=== PATIENT | female | born 1950 | race Caucasian/White ===

== ENCOUNTER 2016-03-20 13:46 | Emergency (ER) | payer MEDICARE ==
[~2016-03-20] VITALS: Ht 152.4 cm; Wt 72.3 kg
[~2016-03-20 13:46] MED LIST: AMLO-39 PO; CARI350T PO; ESTR0.5T PO; LEVO100T6 PO; LORA0.5T PO; METO25TA3 PO; OMEP20TA86 PO; OXYC1TAB24 PO; PARO20TA57 PO; POTA20TA7 PO; PREG150C PO; TRIA1CAP5 PO
[2016-03-20 13:50] VITALS: BP 116/90; PULSE 112; RESP 20; O2SAT 93
[2016-03-20] MEDS ORDERED: AMLO2.5T PO (14:14)
[2016-03-20] MEDS ORDERED: HYDR-3825 PO (14:14)
[2016-03-20] MEDS ORDERED: DULO60CA61 PO (14:14)
[2016-03-20] MEDS ORDERED: CYCL5TAB PO (14:14)
[2016-03-20] MEDS ORDERED: PRD2.5T PO (14:14)
--- NOTE | 2016-03-20 15:08 | ED.REPORT ---
HPI-General Illness Date of Service Mar 20, 2016 ED Provider: Claude Salazar MD History of Present Illness: OCC Pt is a 65 year old female with a hx of HTN, presenting to the ED complaining of constipation, last BM 2 days ago. Associated symptoms include diaphoresis, chills, weakness, subjective fever, shaking, mild headache, racing heart, back pain, abd cramping (onset yesterday while trying to have a BM). Denies dysuria or nausea. She states that 1 week ago she was put on antibiotics, her Cymbalta was increased, and she had an influenza shot, and she has felt ill since. The pt disimpacted yesterday but has not had a regular bowel movement since, and has not eaten due to feeling ill. She reports drinking milk and water with her pills. Nursing Notes Stated Complaint: SWEATING,NO FLUIDS,NO BOWEL MOVEMENTS Chief Complaint: Female Abdominal Pain Nursing Notes Reviewed: Yes ([employer], meds reconciled - but do no include dilaudid mentioned in RN report - turns out patient NOT on Dilaudid, patient's duloxetine was recently increased) Allergies: Coded Allergies: cephalexin (Verified Allergy, Severe, ANGIOEDEMA, 02/04/15) ciprofloxacin (Verified Allergy, Severe, MENTAL CONFUSION, 02/04/15) lisinopril (Verified Allergy, Severe, oral swelling, 02/04/15) Potassium Clavulanate (Verified Adverse Reaction, Severe, Nausea,Vomiting, AGITATION, 02/04/15) amoxicillin trihydrate (Verified Adverse Reaction, Intermediate, Nausea, Vomiting,AGITATION, 02/04/15) Scheduled Amlodipine (Amlodipine) 2.5 Mg Tablet 2.5 MG PO DAILY Duloxetine (Duloxetine) 60 Mg Capsule.dr 60 MG PO DAILY Estradiol (Estradiol) 0.5 Mg Tablet 0.5 MG PO DAILY Levothyroxine (Levothyroxine) 100 Mcg Tablet 100 MCG PO DAILY Metoprolol Succinate ER (Toprol XL) 25 Mg Tablet 25 MG PO DAILY Omeprazole (Omeprazole) 20 Mg Tablet.dr 20 MG PO DAILY Prednisone (PredniSONE) 2.5 Mg Tab 2.5 MG PO DAILY Triamterene/HCTZ 37.5-25 mg (Triamterene/HCTZ 37.5-25 mg) 1 Each Capsule 1 CAPSULE PO DAILY Scheduled PRN Cyclobenzaprine (Cyclobenzaprine) 5 Mg Tablet 5 MG PO HS PRN PRN Spasm Hydrocodone-Acetaminophen 7.5-325 mg (Hydrocodone-Acetaminophen 7.5-325 mg) 1 Each Tablet 1 TABLET PO Q4H PRN PRN For Pain Lorazepam (Lorazepam) 0.5 Mg Tablet 0.25-0.5 MG PO HS PRN PRN For Insomnia Polyethylene Glycol 3350 (Miralax) 17 Gm Powd.pack 17 GM PO DIRECTED PRN PRN For Constipation General Time Seen by MD: 15:02 Chief Complaint Other (Constipation) Hx Obtained From: Patient Arrived By: Walk-in Onset Occurred: 1 week ago Context of Onset: Recent antibiotic use Symptom Duration: Since onset Location: : Abdomen: Back Quality: Painful Severity: Current: Mild Severity: Maximum: Moderate Recent Healthcare: No recent hospitalization, Recent doctor visit Similar Sx Previous: Yes Past Medical History Past Medical History Hypertension Rheumatoid arthritis on prednisone Fibromyalgia Hypothyroidism GERD Rotator cuff tear History of meningioma History of scoliosis History of kidney stones History of chronic pain Past Surgical History History of umbilical hernia repair Hysterectomy for endometriosis Left wrists cyst removal Bilateral L2-3, L3-4, and right L4-5 laminectomy for spinal stenosis Reports: Tubal ligation Ambulatory Status Independent Review of Systems Full Review of Systems Constitutional: Reports: Chills, Fever GI: Reports: Abdominal pain, Constipation, Denies: Nausea Female: Denies: Dysuria Musculoskeletal: Reports: Back pain Skin: Reports Diaphoresis Neurologic: Reports: Headache, Shaking, Weakness Complete sys rev & neg: except as marked. Physical Exam Vital Signs Vital Signs Date Time Temp Pulse Resp B/P Pulse Ox O2 Delivery O2 Flow Rate FiO2 03/20/16 19:06 90 18 134/69 99 Room Air 03/20/16 17:09 36.9 101 19 129/85 95 Room Air 03/20/16 13:50 36.2 112 20 116/90 93 Room Air Initial VS: Reviewed, Vital signs abnormal Head / Eyes: Atraumatic, Normocephalic, PERRL ENT: Mucous membranes moist, Conjunctiva normal, No scleral icterus Neck: Supple Respiratory: Breath sounds normal, Clear to auscultation, No respiratory distress Cardiovascular: Regular rate & rhythm, Heart sounds normal, Intact distal pulses Lymphatic: No lymphadenopathy Extremities: Vascular intact, Neuro intact, No swelling, No tenderness Skin: Warm, Dry, No cyanosis Neurologic: Alert, Oriented, Nonfocal Psychiatric: Mood/affect normal, Behavior normal, Normal thought content General/Constitutional: Awake, Alert Fatigued Abdomen: No guarding, No rebound Lower abd tenderness, right slightly greater than left Interpretation & Diagnostics Interpretation & Diagnostics: Patient was started last week on Macrodantin for UTI at the office, and is currently on Macrodantin I have attempted to identify a culture done - none was identified in the system Lab Results Interpretation Result Diagram: 03/20/16 1430 03/20/16 1518 Test 03/20/16 14:30 03/20/16 15:18 03/20/16 15:30 03/20/16 16:17 White Blood Count 16.0th/mm3 (3.8-10.1) Red Blood Count 4.51mil/mm3 (3.90-5.20) Hemoglobin 13.9g/dL (12.0-15.6) Hematocrit 40.8% (35.0-46.0) Mean Corpuscular Volume 90.5fL (81-100) Mean Corpuscular Hemoglobin 30.8pg (27.0-35.0) Mean Corpuscular Hemoglobin Concent 34.1% (32.0-37.0) Red Cell Distribution Width 13.5% (12.3-15.4) Platelet Count 249bil/L (150-400) Neutrophils (%) (Auto) 71.3% (40-74) Lymphocytes (%) (Auto) 14.5% (14-46) Monocytes (%) (Auto) 5.8% (4-12) Eosinophils (%) (Auto) 5.8% (0-5) Basophils (%) (Auto) 0.8% (0-3) Lactic Acid Level 1.7mmol/L (0.4-2.0) Sodium Level 135mEq/L (134-144) Potassium Level 3.1mEq/L (3.5-5.2) Chloride Level 97mEq/L (97-108) Carbon Dioxide Level 22mmol/L (18-29) Blood Urea Nitrogen 23mg/dL (8-27) Creatinine 0.94mg/dL (0.57-1.00) Estimat Glomerular Filtration Rate 86mL/min (>59) Glucose Level 121mg/dL (60-99) Calcium Level 8.9mg/dL (8.5-10.1) Total Bilirubin 0.9mg/dL (0.0-1.2) Aspartate Amino Transf (AST/SGOT) 73U/L (0-50) Alanine Aminotransferase (ALT/SGPT) 99U/L (0-32) Alkaline Phosphatase 125U/L (25-165) Total Protein 6.8g/dL (6.4-8.4) Albumin 3.1g/dL (3.4-5.0) Hold Purple Top Tube Received (Received) Hold Blue Top Tube Received (Received) Hold Red Top Tube Received (Received) Hold [place] Top Tube Received (Received) Hold Ru[place] Top Tube Received (Received) Urine Color Yellow (YELLOW) Urine Appearance Clear (CLEAR,HAZY) Urine pH 7.5 (5.0-8.0) Urine Specific [place] 1.010 (1.003-1.035) Urine Protein Tracemg/dL (NEG,TRACE) Urine Glucose (UA) Negativemg/dL (NEGATIVE) Urine Ketones Tracemg/dL (NEGATIVE) Urine Occult Blood Trace (NEGATIVE) Urine Nitrite Negative (NEGATIVE) Urine Bilirubin Negative (NEGATIVE) Urine Urobilinogen Normalmg/dL (NORMAL) Urine Leukocyte Esterase Negative (NEGATIVE) Urine RBC 0-2/hpf (0-2) Urine WBC 0-5/hpf (0-5) Urine Epithelial Cells Few/hpf (NONE-MOD) Urine Crystals None seen (NONE SEEN) Urine Bacteria Few/hpf (NONE-FEW) Urine Hyaline Casts None/lpf (NONE) Urine Granular Casts None seen (NONE SEEN) Urine Waxy Casts None seen (NONE SEEN) Urine Red Blood Cell Casts None seen (NONE SEEN) Urine White Blood Cell Casts None seen (NONE SEEN) Urine Mucus None seen (None Seen) Urine Trichomonas None seen (NONE SEEN) Urine Yeast None (NONE SEEN) Urinalysis Comment None Urine Culture Reflexed Not indicated Lab Results Interpretation: CBC positive leukocytosis CMP mild hypokalemia Blood cultures pending Lactic acid normal UA negative X-Ray Abdominal Interpretation IMPRESSION: Nonspecific bowel gas pattern. If patient's symptoms persist, recommend repeat imaging or CT. Dictated by: Hunter SPRING Interpreted: Oksana Quigley MD on 03/20/2016 at 15:43 Transcribed by: VIKKI on 03/20/2016 at 15:44 Approved by: Oksana Quigley MD, PhD on 03/20/2016 at 17:05 Interpretation / Wet Read by: Interpret - Radiologist CT Abd / Pelvis Interpretation IMPRESSION: 1. No acute intra-abdominal findings. Normal appendix. 2. Fat-containing ventral hernia. No bowel herniation. Dictated by: Venita Bunch M.D. on 03/20/2016 at 18:09 Study type: Abdominal CT IV contrast Interpretation / Wet Read by: Interpret - Radiologist Re-Eval/Medical Decision Med Decision/Clinical Course This is a 65-year-old female presents with a variety of complaints. She is on chronic prednisone to history returns arthritis, reports last week she felt poorly, fatigue was having maybe fevers chills and sweats-reportedly generally stopped on Saturday. She is also been having problems with constipation as being quite severe. Today she reports that she thinks she may have had injected fever, chills and sweats this morning. She reports she still has not had a satisfactory bowel movement, and she feels achy. Was nauseated and fatigued at times. While achy she denies any specific pain other than some intermittent headaches at time of exam exam. However on exam she had some mild abdominal tenderness in the lower abdomen. Patient's afebrile, nontoxic. The above she had some lower abdominal tenderness without guarding or rebound. But again she is on prednisone which could mask intra-abdominal pathology. sHe is also on Macrodantin for possible UTI diagnosed a week ago-records indicate no culture was sent. This point the patient on prednisone, and antibiotics with possible infectious presentation. She does not have specific hard findings other than trace tenderness on initial exam of the abdomen. Blood work revealed mild leukocytosis, blood cultures are pending. Lactic acid is normal. Potassium is mildly low, UA is negative. Influenza is negative, chest x-ray is negative, CT abdomen and pelvis is negative. The patient feels much improved on reevaluation. She is drinking fluids clinically appears well and has no further abdominal discomfort. At this time a definitive cause of her presentations unclear. She is not clinically septic, and a definite bacterial infectious source has not been identified, but she is also on low-dose prednisone and Macrodantin. I talked about possibly giving her an IV dose of antibiotics awaiting cultures-but she has an extensive allergy profile was severe anaphylaxis to multiple broad- spectrum agents, so on further discussion decided given the absence of a definitive source or findings, to simply hold off while awaiting cultures. Patient is comfortable for with this. She is being discharged in good condition, clinically well-appearing, with normal vitals. Soft nontender abdomen without clinical signs of an acute surgical process. Her constipation I have provided a bottle of mag citrate, and recommended daily MiraLAX as well. Routine precautions are reviewed.. Source of Hx: Old records Time of Eval: 18:26 Patient Status: Condition improved Re-Evaluation/Progress Note: Pt is feeling great, only complaint is that she is a little thirsty. No complaints at all in evaluations. Time of Eval: 18:39 Patient Status: Condition improved Re-Evaluation/Progress Note: Discussed plan for discharge. Pt understands and agrees. Differential Diagnosis: Negative: Abdominal pain, Allergies, Fracture, G-tube repair/replacement, Neutropenia, Pneumonia, Wound dehiscence Counseled Regarding: Diagnosis, Lab results, Need for follow-up, When/why to return to ED Discharge & Departure Primary Impression: Influenza-like illness Additional Impression: Constipation Constipation type: unspecified constipation type Qualified Code: K59.00 - Constipation, unspecified Disposition: Home Discharge Condition All VS Reviewed: Yes Condition: Improved Additional Instructions: 1. Your symptoms of sweats and chills concerning for the possibility of an infection, because you are on the medicine prednisone-and already on the antibiotic Macrodantin, he was sent to the emergency department for further evaluation. 2. However, your tests in the emergency department did not reveal a clear bacterial infection. Urine tests today were normal. Your influenza test was negative (although this test for this viral infection is not perfect). And no signs of infection were appreciated on your chest x-ray, or your abdominal CT scan. 3. Blood "cultures" have been drawn today - but these can take up to several days for final results. Usually it is something abnormal is growing, we can start to identify something is there at about 24 hours. Call [phone] tomorrow afternoon for an update on your cultures. 4. Your potassium was slightly low today. Resume your potassium supplement 10 mEq once a day. 5. To help with her constipation, drink one half of the bottle of magnesium citrate today, and the remaining one half bottle tomorrow. 6. Starting tomorrow-take lacks one heaping tablespoon and mixed with 4 ounces fluids and drink daily as needed for constipation. 7. Return if new or worsening symptoms occur. Referrals: Tarik Norton MD (PCP) Scribe Attestation Portions of this note were transcribed by Mellisa Damon. I, Dr. Salazar personally performed the history, physical exam and medical decision-making; I reviewed and confirmed the accuracy of the information in the transcribed note. Signed by: Lucille Vargas, 03/20/2016 and 1900. copies to: Tarik Norton MD, Matthew F MD Mar 20, 2016 15:08 MELLISA DAMON Mar 20, 2016 15:25
[2016-03-20] MEDS ORDERED: Ondansetron 2 mg/mL 2 mL Inj IVPUSH ONE (15:35)
[2016-03-20] MEDS ORDERED: 0.9% Sodium Chloride 1,000 ML IV ONE (15:35)
[2016-03-20 15:40] LABS: BASOPHILS % (AUTO) 0.8 % (0-3); EOSINOPHILS % (AUTO) 5.8 % (0-5); MONOCYTES % (AUTO) 5.8 % (4-12); Mean Corpuscular Hemoglobin 30.8 pg (27.0-35.0); Mean Corpuscular Volume 90.5 fL (81-100); NEUTROPHILS % (AUTO) 71.3 % (40-74); Platelet Count 249 bil/L (150-400)
--- NOTE | 2016-03-20 15:44 | DRSVH ---
PROCEDURE: X-RAY ACUTE ABDOMINAL SERIES ([id number]) INDICATIONS: constipation TECHNIQUE: One view chest and two views of the abdomen were acquired. COMPARISON: [facility], CT, CHEST WITH CONTRAST, 09/02/2014, 12:19. FINDINGS: Surgical changes and devices: None. Chest: Lungs are clear, aside from scarring within the mid right lung similar to prior exam. Heart size is normal. No pleural effusions. No pneumoperitoneum. Abdomen: Nonspecific bowel gas pattern. There short air-fluid levels seen throughout multiple bowel loops throughout the abdomen, otherwise bowel gas pattern is normal. Bones: No suspicious bony lesions. IMPRESSION: Nonspecific bowel gas pattern. If patient's symptoms persist, recommend repeat imaging or CT. Dictated by: Hunter Sommers [facility] Interpreted: Oksana Quigley MD on 03/20/2016 at 15:43 Transcribed by: VIKKI on 03/20/2016 at 15:44 Approved by: Oksana Quigley MD, PhD on 03/20/2016 at 17:05
[2016-03-20 16:40] LABS: APPEARANCE,URINE CLEAR (CLEAR,HAZY); COLOR,URINE YELLOW (YELLOW); OCCULT BLOOD,URINE TRACE (NEGATIVE); PH,URINE 7.5 (5.0-8.0); UROBILINOGEN,URINE NORMAL (NORMAL)
[2016-03-20 17:09] VITALS: BP 129/85; PULSE 101; RESP 19; O2SAT 95
--- NOTE | 2016-03-20 18:15 | DRSVH ---
PROCEDURE: CT ABDOMEN AND PELVIS WITH CONTRAST ([id number]) INDICATIONS: abd pain TECHNIQUE: After the administration of intravenous contrast, 5 mm thick sections acquired from the diaphragm to the symphysis. 5 mm coronal and sagittal reformats were acquired. For radiation dose reduction, the following was used: automated exposure control, adjustment of mA and/or kV according to patient siz e. COMPARISON: None. FINDINGS: Image quality: Excellent. ABDOMEN: Lung bases: Lung bases are clear. Heart size is normal. Solid organs: Liver and spleen are normal in size and enhancement. Gallbladder is unremarkable. Bi liary system is non dilated. Pancreas enhances normally. No adrenal nodules. The right kidney is at rophic. There is severe right hydronephrosis. Left kidney demonstrates compensatory hypertrophy. No l eft hydronephrosis. Peritoneum and bowel: Bowel loops demonstrate normal wall thickness and caliber. The appendix is thi n walled. No free fluid or air. Nodes and vessels: No retroperitoneal or mesenteric adenopathy by size criteria. Aorta and inferior vena cava are normal in size. There are scattered atheromatous calcifications throughout the aorta and iliac arteries bilaterally. Miscellaneous: There is a lobulated fat-containing ventral hernia. PELVIS: Genitourinary: Bladder wall thickness is normal. Miscellaneous: No inguinal hernias or adenopathy. Bones: No suspicious bony lesions. No vertebral body compression fractures. Severe degenerative pietro nges are present throughout the lumbar spine. IMPRESSION: 1. No acute intra-abdominal findings. Normal appendix. 2. Fat-containing ventral hernia. No bowel herniation. Dictated by: Venita Bunch M.D. on 03/20/2016 at 18:09 Approved by: Venita Bunch M.D. on 03/20/2016 at 18:14
[2016-03-20] MEDS ORDERED: Potassium Chloride 20 mEq SR Tablet PO ONE (18:25)
[2016-03-20] MEDS ORDERED: POLY17PO6 PO (18:50)
[2016-03-20 19:06] VITALS: BP 134/69; PULSE 90; RESP 18; O2SAT 99
== END 2016-03-20 19:07 | disposition home or self-care (01) ==
LOC: SED 13:46
DX: J11.1 Influenza due to unidentified influenza virus with other respiratory manifestations (principal); K59.00 Constipation, unspecified; R61 Generalized hyperhidrosis; R00.2 Palpitations; M54.9 Dorsalgia, unspecified; R10.31 Right lower quadrant pain; R10.32 Left lower quadrant pain; M06.9 Rheumatoid arthritis, unspecified; M79.7 Fibromyalgia; I10 Essential (primary) hypertension; E03.9 Hypothyroidism, unspecified; K21.9 Gastro-esophageal reflux disease without esophagitis; Z88.1 Allergy status to other antibiotic agents; Z88.8 Allergy status to other drugs, medicaments and biological substances
CPT/HCPCS: 36415; 74022; 74177; 80053; 81000; 83605; 85025; 87040; 87804; 96361; 96374; 99285; J7030; Q9967